=== PATIENT | female | born 1985 | race African-American/Black ===

== ENCOUNTER 2021-11-21 22:00 | Inpatient (IN) | payer SELFPAY ==
[~2021-11-21] VITALS: Ht 157.5 cm; Wt 88.9 kg
[2021-11-21] MEDS ORDERED: PRETAB PO (22:17)
[2021-11-21] MEDS ORDERED: METHYLERGONOVINE 0.2 MG/ML AMP IM PRN (22:20)
[2021-11-21] MEDS ORDERED: LACTATED RINGERS 500 ML IV SCH (22:20)
[2021-11-21] MEDS ORDERED: CARBOPROST 250 MCG/ML AMP IM PRN (22:20)
[2021-11-21] MEDS: LACTATED RINGERS 1,000 ML IV SCH (22:35)
[2021-11-21 22:53] LABS: BASOPHILS # (AUTO) 0.1 K/uL (0.00-0.22); BASOPHILS % (AUTO) 0.5 % (0.0-2.0); EOSINOPHILS % (AUTO) 0.4 % (0.0-4.0); HEMATOCRIT 38.6 % (36-48); HEMOGLOBIN 13.1 g/dL (12.0-16.0); LYMPHOCYTES # (AUTO) 1.2 K/uL (2.5-16.5); LYMPHOCYTES % (AUTO) 11.2 % (20.5-51.1); MEAN CORPUSCULAR HEMOGLOBIN 31 pg (27-31); MEAN CORPUSCULAR HGB CONC 34 g/dL (33-37); MEAN CORPUSCULAR VOLUME 91.2 fL (80-94); MONOCYTES # (AUTO) 0.8 K/uL (0.8-1.0); MONOCYTES % (AUTO) 7.5 % (1.7-9.3); NEUTROPHILS # (AUTO) 8.4 K/uL (1.8-7.7); NEUTROPHILS % (AUTO) 80.4 % (42.2-75.2); PLATELET COUNT (AUTO) 122 K/uL (140-450); RED BLOOD CELL COUNT(AUTO) 4.23 MIL/uL (4.20-5.40); RED CELL DISTRIBUTION WIDTH 14.4 % (11.6-13.7); WHITE BLOOD COUNT (AUTO) 10.5 K/uL (4.8-10.8)
[2021-11-21 23:16] VITALS: BP 138/98
[2021-11-21 23:24] LABS: ALBUMIN 2.7 g/dL (3.4-5.0); ANION GAP 13.1 (8-16); CARBON DIOXIDE 21.9 mmol/L (21-32); CREATININE 0.7 mg/dL (0.6-1.3); TOTAL BILIRUBIN 0.4 mg/dL (0.0-1.0)
[2021-11-21] MEDS ORDERED: ROPIVACAINE 0.2%/NS PREMIX 200 ML EPI ONE (23:26)
[2021-11-21] MEDS ORDERED: fentaNYL citrate 0.05 MG/ML VIAL ONE (23:27)
[2021-11-21 23:53] LABS: APPEARANCE,URINE CLOUDY (CLEAR); BILIRUBIN,URINE 1+ (NEGATIVE); BLOOD, URINE 3+ (NEGATIVE); COLOR,URINE RED (YELLOW); LEUKOCYTE ESTERASE ,URINE 2+ (NEGATIVE); NITRITE, URINE NEGATIVE (NEGATIVE); UGLUCOSE NEGATIVE (NEGATIVE)
[2021-11-21] MEDS ORDERED: AMPICILLIN 2,000 MG VIAL ONE (23:56)
[2021-11-22 00:03] LABS: RBC,URINE 11-20 (MOD) /HPF (0-5); WBC,URINE 20-60 /HPF (0-5)
[2021-11-22] MEDS: LACTATED RINGERS 1,000 ML IV SCH (00:11)
[2021-11-22] MEDS ORDERED: TERBUTALINE 1 MG/ML VIAL SUBQ SCH (02:20)
[2021-11-22] MEDS ORDERED: TERBUTALINE 1 MG/ML VIAL SUBQ ONE (02:22)
[2021-11-22] MEDS ORDERED: CITRIC ACID/SODIUM CITRATE 30 ML UDC PO SCH (03:30)
[2021-11-22] MEDS ORDERED: ceFAZolin 1,000 MG VIAL ONE (03:33)
[2021-11-22] MEDS ORDERED: CITRIC ACID/SODIUM CITRATE 30 ML UDC ONE (03:35)
[2021-11-22] MEDS ORDERED: LIDOCAINE MPF 2% 100 MG/5 ML VIAL INJ ONE (03:50)
[2021-11-22] MEDS ORDERED: MORPHINE PRES FREE 10 MG/10 ML AMP IV ONE (03:50)
[2021-11-22] MEDS ORDERED: SODIUM BICARBONATE 8.4% PFS 50 MEQ/50 ML SYR IVP ONE (03:56)
[2021-11-22] MEDS ORDERED: ONDANSETRON 4 MG/2 ML VIAL ONE (04:15)
[2021-11-22] MEDS ORDERED: METOCLOPRAMIDE 10 MG/2 ML INJ VIAL ONE (04:15)
[2021-11-22] MEDS ORDERED: OXYTOCIN 20 UNITS/LR PREMIX 1,000 ML IV ONE (04:42)
[2021-11-22] MEDS ORDERED: diphenhydrAMINE 50 MG/ML VIAL IVP PRN (05:25)
[2021-11-22] MEDS ORDERED: MEASLES, MUMPS, AND RUBELLA 1 VIAL SQVAC ONE (05:25)
[2021-11-22] MEDS ORDERED: OXYTOCIN 20 UNITS in LACTATED RINGERS 1,000 ML IV SCH ×2 (05:25)
[2021-11-22] MEDS ORDERED: METHYLERGONOVINE 0.2 MG/ML AMP IM PRN (05:25)
[2021-11-22] MEDS ORDERED: PROMETHAZINE 25 MG/ML VIAL IVP PRN (05:25)
[2021-11-22] MEDS ORDERED: oxyCODONE/APAP 5/325 MG 1 TAB TAB PO PRN (05:25)
[2021-11-22] MEDS ORDERED: KETOROLAC 30 MG/ML VIAL IVP PRN (05:25)
[2021-11-22] MEDS ORDERED: NALOXONE 0.4 MG/ML VIAL IVP PRN (05:25)
--- NOTE | 2021-11-22 08:40 | NUR ---
PATIENT HAS BEEN SCREENED AND CATEGORIZED LOW NUTRITION RISK. PATIENT WILL BE SEEN WITHIN 7 DAYS OF ADMISSION. 11/28/[address]
[2021-11-22] MEDS ORDERED: bisacodyL 10 MG SUPP RC SCH (09:00)
[2021-11-22] MEDS ORDERED: CAMERA MC ONE (19:30)
[2021-11-23] MEDS ORDERED: IBUPROFEN 600 MG TAB PO SCH (02:00)
[2021-11-23 06:12] LABS: BASOPHILS % (AUTO) 0.2 % (0.0-2.0); EOSINOPHILS # (AUTO) 0.1 K/uL (0-0.4); EOSINOPHILS % (AUTO) 0.5 % (0.0-4.0); HEMATOCRIT 32.3 % (36-48); HEMOGLOBIN 10.7 g/dL (12.0-16.0); LYMPHOCYTES # (AUTO) 1.6 K/uL (2.5-16.5); LYMPHOCYTES % (AUTO) 11.3 % (20.5-51.1); MEAN CORPUSCULAR HEMOGLOBIN 31 pg (27-31); MEAN CORPUSCULAR HGB CONC 33 g/dL (33-37); MEAN CORPUSCULAR VOLUME 91.9 fL (80-94); MONOCYTES # (AUTO) 0.9 K/uL (0.8-1.0); MONOCYTES % (AUTO) 6.1 % (1.7-9.3); NEUTROPHILS # (AUTO) 11.5 K/uL (1.8-7.7); NEUTROPHILS % (AUTO) 81.9 % (42.2-75.2); PLATELET COUNT (AUTO) 110 K/uL (140-450); RED BLOOD CELL COUNT(AUTO) 3.51 MIL/uL (4.20-5.40); RED CELL DISTRIBUTION WIDTH 14.8 % (11.6-13.7); WHITE BLOOD COUNT (AUTO) 14.1 K/uL (4.8-10.8)
[2021-11-23 08:08] LABS: HEPATITIS B SURFACE ANTIGEN Negative (Negative)
[2021-11-23] MEDS ORDERED: SODIUM PHOSPHATE 118 ML ENEM RC PRN (14:00)
== END 2021-11-23 16:20 | disposition home or self-care (01) | DRG 788 ==
LOC: MLD 22:00 → MFCC 11-22 06:30
PROVIDERS: ADMIT Obstetrics & Gynecology; ATTEND Obstetrics & Gynecology
PROC: 10D00Z1 Extraction of Products of Conception, Low, Open Approach (ICD-10-PCS; principal; 2021-11-22 04:00)
DX: O76 Abnormality in fetal heart rate and rhythm complicating labor and delivery (principal); O69.81X0 Labor and delivery complicated by cord around neck, without compression, not applicable or unspecified; O77.0 Labor and delivery complicated by meconium in amniotic fluid; Z20.822 Contact with and (suspected) exposure to COVID-19; Z3A.39 39 weeks gestation of pregnancy; Z37.0 Single live birth
CPT/HCPCS: 36415; 51702; 80053; 81001; 85025; 86592; 86762; 86886; 86900; 86901; 87086; 87340; 87653-90; 90715; J0290; J0690; J1885; J2001; J2270; J2405; J2590; J2765; J2795; J3010; J3105; J7120